=== PATIENT | male | born 1985 | race Caucasian/White ===

== ENCOUNTER 2016-11-23 14:07 | Emergency (ER) | payer BC ==
[2016-11-23 14:17] VITALS: BP 132/77
--- NOTE | 2016-11-23 14:32 | UC ---
UC General HPI - HPI Summary HPI Summary: complaint of rash on his left wrist that started approx1.5 months ago has been using antifungal cream on it but it hasn't worked mildly itchy started as a small red ring and has gotten bigger denies fever - History of Current Complaint Chief Complaint: UCSkin Stated Complaint: RASH Time Seen by Provider: 11/23/16 14:13 Hx Obtained From: Patient - Allergy/Home Medications Allergies/Adverse Reactions: Allergies Allergy/AdvReac Type Severity Reaction Status Date / Time No Known Allergies Allergy Verified 11/23/16 14:17 Home Medications: Home Medications Omeprazole CAP* [Prilosec CAP* 20 MG] 20 mg PO DAILY 11/23/16 [History Confirmed 11/23/16] PMH/Surg Hx/FS Hx/Imm Hx Previously Healthy: Yes GI/ History: Gastroesophageal Reflux - Surgical History Surgical History: Yes Surgery Procedure, Year, and Place: right wrist 2005. left leg 1994 - Family History Known Family History: Negative: Cardiac Disease, Hypertension, Diabetes - Social History Occupation: Employed Full-time Lives: With Family Alcohol Use: Rare Substance Use Type: None Smoking Status (MU): Light Every Day Tobacco Smoker Type: Smokeless Tobacco Cessation Counseling: Patient Advised to Stop Review of Systems Constitutional: Negative Skin: Rash Eyes: Negative ENT: Negative Respiratory: Negative Cardiovascular: Negative Gastrointestinal: Negative Genitourinary: Negative Motor: Negative Neurovascular: Negative Musculoskeletal: Negative Neurological: Negative Psychological: Negative All Other Systems Reviewed And Are Negative: Yes Physical Exam Triage Information Reviewed: Yes Appearance: No Pain Distress, Well-Nourished Vital Signs: Initial Vital Signs Temp 98.5 F 11/23/16 14:10 Pulse 71 11/23/16 14:10 Resp 16 11/23/16 14:10 BP 132/77 11/23/16 14:10 Pulse Ox 99 11/23/16 14:10 Vital Signs Reviewed: Yes Eyes: Positive: Conjunctiva Clear ENT: Positive: Pharynx normal, TMs normal Neck: Positive: No Lymphadenopathy Respiratory: Positive: Lungs clear, Normal breath sounds, No respiratory distress, No accessory muscle use Cardiovascular: Positive: RRR, No Murmur, Pulses Normal Neurological: Positive: Alert Psychological Exam: Normal Skin: Positive: Other - left wrist 3x3cm area of erythema with raised border and clear center Course/Dx - Differential Dx - Multi-Symptom Provider Diagnoses: tinea Discharge - Discharge Plan Condition: Stable Disposition: HOME Prescriptions: Clotrimazole/Betamethasone* [Lotrisone Cream*] 1 applic TOPICAL BID #1 tube Mupirocin 2% OINT* [Bactroban 2 % Oint*] 1 applic TOPICAL BID #1 tube Patient Education Materials: Tinea Corporis (ED) Referrals: [facility] [place] [place] [facility] [Outside] Additional Instructions: Please start ointment as directed Increase fluids and rest Take acetaminophen or ibuprofen for fever or pain Please review your discharge instructions. If your symptoms do not improve please call your primary care provider or return to urgent care.
== END 2016-11-23 14:44 | disposition home or self-care (01) ==
LOC: UCCORT 14:07
DX: B35.9 Dermatophytosis, unspecified (principal); F17.200 Nicotine dependence, unspecified, uncomplicated; K21.9 Gastro-esophageal reflux disease without esophagitis
CPT/HCPCS: 99202; G0463

== ENCOUNTER 2016-11-28 11:58 | Emergency (ER) | payer BC ==
[2016-11-28 12:41] VITALS: BP 144/74
--- NOTE | 2016-11-28 13:28 | UC ---
Skin Complaint HPI - HPI Summary HPI Summary: progressive erythema and swelling, with development of some pustules, in the area being treated for ringworm. Reviewed assessment of 11/23. He has been using the mupirocin and lotrisone alternately. No fever. He has been opening the small pustules with his pocket despite his 's discouragement of this activity. Initial patch of ringworm developed about 4 weeks ago. 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 Onset/Duration: Gradual Onset Timing: Constant Onset Severity: Mild Current Severity: Moderate Location: Discrete - left forearm Aggravating: Touch Alleviating: Nothing Associated Signs & Symptoms: Positive: Negative - Allergy/Home Medications Allergies/Adverse Reactions: Allergies Allergy/AdvReac Type Severity Reaction Status Date / Time No Known Allergies Allergy Verified 11/23/16 14:17 Review of Systems Constitutional: Negative - Feels well. Skin: Rash - left forearm. No other areas of ringworm. All Other Systems Reviewed And Are Negative: Yes PMH/Surg Hx/FS Hx/Imm Hx Previously Healthy: Yes - Surgical History Surgical History: Yes Surgery Procedure, Year, and Place: right wrist 2005. left leg 1994 - Family History Known Family History: Negative: Cardiac Disease, Hypertension, Diabetes - Social History Occupation: Employed Full-time Lives: With Family Alcohol Use: Weekly Substance Use Type: None Smoking Status (MU): Heavy Every Day Tobacco Smoker Type: Smokeless Tobacco Amount Used/How Often: 1 can per day Length of Time of Smoking/Using Tobacco: started at age 15 Physical Exam Triage Information Reviewed: Yes Appearance: Well-Appearing, No Pain Distress Vital Signs: Initial Vital Signs Temp 98.4 F 11/28/16 12:34 Pulse 64 11/28/16 12:34 Resp 14 11/28/16 12:34 BP 144/74 11/28/16 12:34 Pulse Ox 98 11/28/16 12:34 Respiratory: Positive: Lungs clear, Normal breath sounds Cardiovascular: Positive: RRR, No Murmur Neurological Exam: Normal Neurological: Positive: Alert Psychological Exam: Normal Skin Exam: Other - 4.5 x 4 cm area of erythema right forearm. Medial border with some clearing, but lateral half of the area is raised, indurated and tender , with 4 small pustules. One opened and sent for culture. Course/Dx - Course Course Of Treatment: keflex for cellulitis, continue treatment of ringworm. - Differential Diagnoses - Skin Complaint Differential Diagnoses: Cellulitis, Eczema, Impetigo, Tinea - Diagnoses Provider Diagnoses: cellulitis associated with area of tinea corporis Discharge - Discharge Plan Condition: Stable Disposition: HOME Prescriptions: Cephalexin CAP* [Keflex 500 CAP*] 500 mg PO QID #28 cap Patient Education Materials: Cellulitis (ED) Referrals: No Primary Care Phys,NOPCP [Primary Care Provider] - Additional Instructions: You have a progressive infection in the area where the ringworm rash started. For now: STOP mupirocin. Hot compress the area three times daily for 5 minutes, then apply a light layer of the antifungal cream and massage it in well. Allow any pustules to open on their own and drain. The swelling should decrease over the next 2 to 3 days, but the flat ringworm component will take another 2 to 3 weeks to subside, and the skin will be a little red and discolored for a couple of months.
== END 2016-11-28 13:55 | disposition home or self-care (01) ==
LOC: UCCORT 11:58
DX: L03.114 Cellulitis of left upper limb (principal); B35.4 Tinea corporis; F17.220 Nicotine dependence, chewing tobacco, uncomplicated
CPT/HCPCS: 87070; 87205; 99212; G0463